=== PATIENT | female | born 1960 | race Caucasian/White ===

== ENCOUNTER 2017-09-04 09:22 | Emergency (ER) | payer OTHER ==
[~2017-09-04] VITALS: Ht 157.5 cm; Wt 90.5 kg
[2017-09-04] MEDS ORDERED: ZOLOFT50 MG (10:27)
[2017-09-04] MEDS ORDERED: PRAVASTATIN SOD10 MG (10:27)
[2017-09-04] MEDS ORDERED: METFORMIN HCL500 MG PO (10:27)
[2017-09-04] MEDS ORDERED: LISINOPRIL2.5 MG PO (10:27)
[2017-09-04] MEDS ORDERED: GLIPIZIDE5 MG PO (10:27)
== END 2017-09-04 09:44 | disposition home or self-care (01) ==
LOC: FSED 09:22 → ER 09:44
DX: S50.311A Abrasion of right elbow, initial encounter (principal); S50.811A Abrasion of right forearm, initial encounter; W17.89XA Other fall from one level to another, initial encounter; Y92.481 Parking lot as the place of occurrence of the external cause
CPT/HCPCS: 99283

== ENCOUNTER 2018-03-09 15:31 | Emergency (ER) | payer OTHER ==
[~2018-03-09] VITALS: Ht 157.5 cm; Wt 90.3 kg
[~2018-03-09 15:31] MED LIST: GLIPIZIDE5 MG PO; LISINOPRIL2.5 MG PO; METFORMIN HCL500 MG PO; PRAVASTATIN SOD10 MG; ZOLOFT50 MG
[2018-03-09] MEDS ORDERED: ONDANSETRON HCL INJ 2MG/ML 2ML 2 MG/ML VIAL IV STA (15:47)
[2018-03-09] MEDS ORDERED: SODIUM CHLORIDE 0.9% 1000ML 1,000 ML IV STA (15:47)
[2018-03-09] MEDS ORDERED: MORPHINE SULFATE INJ 4 MG/ML INJ 1ML IV STA (15:47)
[2018-03-09] MEDS ORDERED: ALPRAZOLAM0.25 MG PO (15:49)
[2018-03-09] MEDS ORDERED: ASPIRIN81 MG (15:49)
[2018-03-09 16:18] LABS: BASOPHILS # (AUTO) 0.1 (0.0-0.1); EOSINOPHILS # (AUTO) 0.2 (0.0-0.4); EOSINOPHILS % 1.7 % (0.0-6.0); HEMATOCRIT 36.9 % (34.2-44.1); HEMOGLOBIN 12.2 g/dL (12.0-16.0); LYMPHOCYTES # (AUTO) 2.8 (1.0-3.2); LYMPHOCYTES % 28.1 % (18.0-39.1); MEAN CORPUSCULAR HGB CONC 33.1 g/dL (31-35); MEAN CORPUSCULAR VOLUME 87.9 fL (81-99); MONOCYTES # (AUTO) 0.8 (0.2-0.8); MONOCYTES % 8.2 % (4.4-11.3); NEUTROPHILS # (AUTO) 6.1 (2.1-6.9); NEUTROPHILS % 60.6 % (38.7-80.0); PLATELET COUNT 278 x10e3/uL (140-360); RED CELL DISTRIBUTION WIDTH 13.4 % (11.7-14.4)
--- NOTE | 2018-03-09 16:25 | Diagnostic Imaging Report ---
Examination: Single AP view of the chest. COMPARISON: None. INDICATION: Abdominal pain DISCUSSION: Lines/tubes: None. Lungs: The lungs are well inflated and clear. No pneumonia or pulmonary edema. Pleura: No pleural effusion or pneumothorax. Heart and mediastinum: Prominent heart size. Bones and soft tissues: No acute bony abnormalities. IMPRESSION: 1. No acute cardiopulmonary abnormalities. Signed by: Dr. Douglas Thorpe M.D. on 03/09/2018 4:21 PM
[2018-03-09 16:31] LABS: ALANINE AMINOTRANSFERASE 17 IU/L (0-55); ALBUMIN 3.6 g/dL (3.5-5.0); ALBUMIN/GLOBULIN RATIO 0.9 (0.8-2.0); ALKALINE PHOSPHATASE 90 IU/L (40-150); AMYLASE 43 U/L (25-125); ANION GAP 15.9 mmol/L (8-16); BLOOD UREA NITROGEN 16 mg/dL (7-26); BUN/CREATININE RATIO 19 (6-25); CALCIUM 9.9 mg/dL (8.4-10.2); CARBON DIOXIDE 23 mmol/L (22-29); CHLORIDE 101 mmol/L (98-107); CREATININE, SERUM 0.84 mg/dL (0.57-1.11); EST GLOMERULAR FILTRATION RATE > 60 ML/MIN (60-); GLUCOSE 198 mg/dL (74-118); LIPASE 35 U/L (8-78); POTASSIUM 3.9 mmol/L (3.5-5.1); SODIUM 136 mmol/L (136-145)
--- NOTE | 2018-03-09 17:46 | Diagnostic Imaging Report ---
EXAM: RUQ ULTRASOUND Date: 03/09/2018 3:47 PM Indication: Pain Comparison: None Technique: Sonographic evaluation of the right upper quadrant. Color doppler was utilized to supplement evaluation. FINDINGS: LIVER: No focal lesion is identified. The liver measures 15.0 cm in the right midclavicular line. Echotexture is coarsened. BILIARY: The gallbladder is moderately contracted limiting evaluation. No definite shadowing stones. The common bile duct measures 0.3 cm. PANCREAS: Limited. RIGHT KIDNEY: Measures 9.5 cm in length. No hydronephrosis or solid mass lesion identified. PERITONEUM: No free fluid. VASCULATURE: Aorta: Limited by overlying bowel gas. Interior vena cava: Visualized portions appear unremarkable. Portal Vein: Nondilated with hepatopedal flow. IMPRESSION: Overlying bowel gas and recent postprandial state limits evaluation. Gallbladder contracted, limiting evaluation. No definite shadowing gallstones. Increased hepatic echotexture can be seen in the setting of steatosis. Signed by: Dr. Roger Mann MD on 03/09/2018 5:43 PM
[2018-03-09 19:20] LABS: BACTERIA,URINE FEW /HPF; BILIRUBIN,URINE NEGATIVE (NEGATIVE); CLARITY,URINE CLEAR (CLEAR); COLOR,URINE YELLOW (YELLOW); EPITHELIAL CELLS,URINE FEW /LPF; KETONES,URINE NEGATIVE (NEGATIVE); LEUKOCYTE ESTERASE ,URINE NEGATIVE (NEGATIVE); NITRITE,URINE NEGATIVE (NEGATIVE); PROTEIN,URINE DIPSTICK NEGATIVE (NEGATIVE); RBC,URINE 0-5 /HPF (0-5); URINE UROBILINOGEN 0.2 mg/dL (0.2 - 1); WBC,URINE (MAN) 0-5 /HPF (0-5)
[2018-03-09 19:21] LABS: MUCUS,URINE FEW (RARE)
[2018-03-09] MEDS ORDERED: KETOROLAC TROMETHAMINE 30 MG/ML VIAL IV ONE (19:45)
[2018-03-09 20:23] VITALS: BP 142/71
[2018-03-09] MEDS ORDERED: CYCLOBENZAPRINE5 MG PO (20:23)
[2018-03-09] MEDS ORDERED: TYLENOL # 31 EA PO (20:23)
== END 2018-03-09 20:42 | disposition home or self-care (01) ==
LOC: ER 15:31
DX: R10.11 Right upper quadrant pain (principal); S39.011A Strain of muscle, fascia and tendon of abdomen, initial encounter; I10 Essential (primary) hypertension; E11.9 Type 2 diabetes mellitus without complications; E78.5 Hyperlipidemia, unspecified
CPT/HCPCS: 36415; 71045; 76705; 80053; 81001; 82150; 83690; 85025; 96374; 99284; J1885; J7030; J2270; J2405

== ENCOUNTER 2018-11-19 12:06 | Emergency (ER) | payer OTHER ==
[~2018-11-19] VITALS: Ht 157.5 cm; Wt 90.3 kg
[~2018-11-19 12:06] MED LIST changes: +ALPRAZOLAM0.25 MG PO; +ASPIRIN81 MG; +CYCLOBENZAPRINE5 MG PO; +TYLENOL # 31 EA PO
--- OUTSIDE RECORDS SUMMARY | 2018-11-19 12:09 | XMS REPORT ---
Author Author [facility] Address Unknown Phone Unavailable Care Team Providers Care Retail Store Manager Name Role Phone Jolly MARES Unavailable Unavailable Problems This patient has no known problems. Allergies, Adverse Reactions, Alerts This patient has no known allergies or adverse reactions. Medications This patient has no known medications. Results Test Description Test Time Test Comments Text Results Atomic Results Result Comments CT, MAXILLOFACIAL AREA, WO CONTRAST 2018-06-13 14:40:00 Reason for exam:->traumaWhat is the patient's sedation requirement?->No SedationIs the patient ?->No FINAL REPORT Clinical History: trauma Technique: Contiguous axial, sagittal, and coronal images through the maxillofacial sinuses without contrast. This exam was performed according to the departmental dose optimization program which includes automated exposure control, adjustment of the mA and/or kV according to the patient size, and/or use of an iterative reconstruction technique. Comparisons: None Findings: The study is motion degraded. Allowing for this, no obvious displaced facial fracture is identified. There is no retro-orbital hemorrhage. The paranasal sinuses appear well-aerated. There is generally poor dentition. The retro-orbital soft tissues and visualized brain parenchyma do not demonstrate acute abnormality. Impression: Motion degraded exam without obvious displaced facial fracture. No retro-orbital hemorrhage. Signed: Chaka Leiva MDReport Verified Date/Time: 06/13/2018 14:40:17 Reading Location: [facility] B1 C013V Neuro Reading Room , BRAIN, WITHOUT CONTRAST 2018-06-13 14:31:00 Reason for exam:->headacheIs the patient ?->NoWhat is the patient's sedation requirement?->No Sedation FINAL REPORT CT Head without contrast CLINICAL HISTORY: headachefall TECHNIQUE: Contiguous axial images through the head without contrast. This exam was performed according to the departmental dose optimization program which includes automated exposure control, adjustment of the mA and/or kV according to the patient size, and/or use of an iterative reconstruction technique. COMPARISON: None FINDINGS: There is no evidence of skull fracture or intracranial hemorrhage. There is generalized parenchymal volume loss without hydrocephalus, midline shift, or apparent mass effect. There are atherosclerotic calcifications of the intracranial circulation. There is mild periventricular and subcortical white matter hypodensity which is nonspecific but compatible with chronic microvascular ischemic change. There are no extra-axial fluid collections. The paranasal sinuses are well-aerated. IMPRESSION: No evidence of skull fracture or intracranial hemorrhage. Signed: Chaka Leiva MDReport Verified Date/Time: 06/13/2018 14:31:34 Reading Location: [facility] C013V Neuro Reading Room GALLBLADDER 2018-03-09 17:41:00 [place] [id number] Patient Name: IMELDA OVALLE MR #: [id number] : 1960 Age/Sex: 57/F Req #: [id number] Adm Physician: Ordered by: SERGEY POLANCO [employer] Report #: [id number] Location: ER Room/Bed: Procedure: [id number] US/US GALLBLADDER Exam Date: 03/09/18 Exam Time: 165 REPORT STATUS: Signed EXAM: RUQ ULTRASOUND Date: 03/09/2018 3:47 PM Ind ication: Pain Comparison: None Technique: Sonographic evaluation of the right upper quadrant. Color doppler was utilized to supplement evaluation. FINDINGS: LIVER: No focal lesion is identified. The liver measures 15.0 cm in the right midclavicular line. Echotexture is coarsened. BILIARY: The gallbladder is moderately contracted limiting evaluation. No definite shadowing stones. The common bile duct measures 0.3 cm. PANCREAS: Limited. RIGHT KIDNEY: Measures 9.5 cm in length. No hydronephrosis or solid mass lesion identified. PERITONEUM: No free fluid. VASCULATURE: Aorta: Limited by overlying bowel gas. Interior vena cava: Visualized portions appear unremarkable. Portal Vein: Nondilated with hepatopedal flow. IMPRESSION: Overlying bowel gas and recent postprandial state limits evaluation. Gallbladder contracted, limiting evaluation. No definite shadowing gallstones. Increased hepatic echotexture can be seen in the setting of steatosis. Signed by: Dr. Roger Mann MD on 03/09/2018 5:43 PM Dictated By: ROGER MANN MD 42 Transcribed By: ADELA on 03/09/181742 COPY TO: SERGEY POLANCO NP CHEST SINGLE (PORTABLE) 2018-03-09 16:21:00 [place] [id number] Patient Name: IMELDA OVALLE MR #: [id number] : 1960 Age/Sex: 57/F Req #: [id number] Adm Physician: Ordered by: SERGEY POLANCO NP Report #: [id number] Location: ER Room/Bed: Procedure: [id number] DX/CHEST SINGLE (PORTABLE) Exam Date: 03/09/18 Exam Time: 1600 REPORT STATUS: Signed Examination: Single AP view of the chest. CO MPARISON: None. INDICATION: Abdominal pain DISCUSSION: Lines/tubes: None. Lungs: The lungs are well inflated and clear. No pneumonia or pulmonary edema. Pleura: No pleural effusion or pneumothorax. Heart and mediastinum: Prominent heart size. Bones and soft tissues: No acute bony abnormalities. IMPRESSION: 1. No acute cardiopulmonary abnormalities. Signed by: Dr. Chaka Law M.D. on 03/09/2018 4:21 PM Dictated By: CHAKA LAW MD [id number] Transcribed By: ADELA on 03/09/18 1621 COPY TO: SERGEY POLANCO NP
[2018-11-19] MEDS ORDERED: ULTRAM50 MG PO (12:22)
--- NOTE | 2018-11-19 12:23 | NUR ---
SUZETTE WRAP REMOVED PER SIXTO Arnold PATIENTS LEG EVALUATED ALSO BY DR. PINTO. IT WAS REWRAPPED WITH SUZETTE BANDAGE
== END 2018-11-19 12:40 | disposition home or self-care (01) ==
LOC: ER 12:06
DX: M25.572 Pain in left ankle and joints of left foot (principal)
CPT/HCPCS: 99282

== ENCOUNTER 2024-11-07 15:53 | Inpatient (IN) | payer MEDICAID, OTHER ==
[~2024-11-07] VITALS: Ht 157.5 cm; Wt 90.7 kg
[~2024-11-07 15:53] MED LIST changes: +ULTRAM50 MG PO
[2024-11-07 16:10] VITALS: TEMP 98.4
[2024-11-07 16:44] LABS: BASOPHILS % 1.2 % (0.0-1.0); EOSINOPHILS % 4.1 % (0.0-6.0); LYMPHOCYTES % 14.9 % (18.0-39.1); MONOCYTES % 7.5 % (4.4-11.3); NEUTROPHILS % 71.9 % (38.7-80.0); RED CELL DISTRIBUTION WIDTH 14.6 % (11.7-14.4)
[2024-11-07 16:48] LABS: INR 1.07
[2024-11-07 16:58] LABS: EST GLOMERULAR FILTRATION RATE 83 ML/MIN (>=60)
[2024-11-07] MEDS ORDERED: ONDANSETRON HCL INJ 2MG/ML 2ML 2 MG/ML VIAL IV PRN (18:00)
[2024-11-07] MEDS: ONDANSETRON HCL INJ 2MG/ML 2ML 2 MG/ML VIAL IV STA (18:28)
[2024-11-07] MEDS: SODIUM CHLORIDE 0.9% 1000ML 1,000 ML IV STA (18:29)
[2024-11-07] MEDS: Vancomycin IV 1 GM in SODIUM CHLORIDE 0.9% 250ML 250 ML IV SCH (19:09)
[2024-11-07 19:45] VITALS: PULSE 90; RESP 16
[2024-11-07] MEDS: SODIUM CHLORIDE 0.9% 1000ML 1,000 ML IV SCH (20:53)
[2024-11-07 21:00] VITALS: BP 116/52; PULSE 88; RESP 16; RESP 17; TEMP 97.5; TEMP 98.5; O2SAT 97
[2024-11-07] MEDS ORDERED: METOPROLOL TART50 MG PO (22:46)
[2024-11-07] MEDS ORDERED: ONDANSETRON ODT4 MG PO (22:46)
[2024-11-08] VITALS (8 sets, daily range): BP systolic 109–141; BP diastolic 48–85; PULSE 75–91; RESP 15–20; TEMP 97.2–98.5; O2SAT 95–100
[2024-11-08 03:19] LABS: LEUKOCYTE ESTERASE ,URINE 1+ (NEGATIVE); PROTEIN,URINE DIPSTICK 1+ (NEGATIVE); URINE UROBILINOGEN 0.2 mg/dL (0.2 - 1)
[2024-11-08 03:28] LABS: EPITHELIAL CELLS,URINE MODERATE /LPF; WBC,URINE (MAN) 21-50 /HPF (0-5)
[2024-11-08 05:26] LABS: BASOPHILS % 1.4 % (0.0-1.0); EOSINOPHILS % 5.3 % (0.0-6.0); LYMPHOCYTES % 18.1 % (18.0-39.1); MONOCYTES % 9.8 % (4.4-11.3); NEUTROPHILS % 65.2 % (38.7-80.0); RED CELL DISTRIBUTION WIDTH 14.7 % (11.7-14.4)
[2024-11-08 06:16] LABS: EST GLOMERULAR FILTRATION RATE 97 ML/MIN (>=60)
[2024-11-08] MEDS ORDERED: FENTANYL CITRATE/PF 100MCG/2 ML INJ ONE (13:51)
[2024-11-08] MEDS ORDERED: PROPOFOL IV EMULSION 10 MG/ML 20 ML VIAL ONE (13:52)
[2024-11-08] MEDS ORDERED: DEXAMETHASONE SOD PHOS INJ 4 MG/ML SDV ONE (13:52)
[2024-11-08] MEDS ORDERED: LIDOCAINE HCL 2% LOCAL INJ 5 ML SDV VIAL INJ ONE (13:52)
[2024-11-08] MEDS ORDERED: ONDANSETRON HCL INJ 2MG/ML 2ML 2 MG/ML VIAL ONE (13:52)
[2024-11-08] MEDS ORDERED: SEVOFLURANE INHAL SOLN 250 ML PEN BTL ONE (15:07)
[2024-11-08] MEDS ORDERED: PHENYLEPHRINE HCL 1% 10 MG/ML VIAL ONE (15:10)
[2024-11-08] MEDS: DEXTROSE 50% SYRINGE 50 ML IV PRN (16:26)
[2024-11-08] MEDS: INSULIN LISPRO 100 UNIT/1 ML 3ML VIAL SQ SCH (16:30)
[2024-11-08] MEDS: DEXTROSE 50% SYRINGE 50 ML IV ONE (16:46)
[2024-11-08] MEDS: Morphine 4mg INJECTION 4 MG/ML INJ IV PRN (20:29)
[2024-11-09] VITALS (9 sets, daily range): BP systolic 100–124; BP diastolic 53–60; PULSE 75–100; RESP 18–20; TEMP 97.3–98.8; O2SAT 96–100
[2024-11-09] MEDS: CLONAZEPAM 1 MG TAB PO ONE ×2 (03:10→20:13)
[2024-11-09] MEDS: ONDANSETRON HCL INJ 2MG/ML 2ML 2 MG/ML VIAL IV PRN (04:55)
[2024-11-09 05:54] LABS: BASOPHILS % 1.2 % (0.0-1.0); EOSINOPHILS % 6.0 % (0.0-6.0); LYMPHOCYTES % 17.7 % (18.0-39.1); MONOCYTES % 8.4 % (4.4-11.3); NEUTROPHILS % 66.3 % (38.7-80.0); RED CELL DISTRIBUTION WIDTH 14.9 % (11.7-14.4)
[2024-11-09 06:16] LABS: EST GLOMERULAR FILTRATION RATE 100.0 ML/MIN (>=60)
[2024-11-09] MEDS: LISINOPRIL 2.5 MG TAB PO SCH (09:00)
[2024-11-09] MEDS: METOPROLOL TARTRATE 50 MG TAB PO SCH (09:00)
[2024-11-09] MEDS: POTASSIUM CHLORIDE 20 MEQ TAB CR PO ONE (11:54)
[2024-11-09] MEDS: ASPIRIN 81 MG ENTERIC COATED PO SCH (11:55)
[2024-11-10] VITALS (9 sets, daily range): BP systolic 99–138; BP diastolic 61–71; PULSE 68–92; RESP 18–20; TEMP 97.7–98.6; O2SAT 96–99
[2024-11-10 05:19] LABS: BASOPHILS % 1.9 % (0.0-1.0); EOSINOPHILS % 7.0 % (0.0-6.0); LYMPHOCYTES % 24.4 % (18.0-39.1); MONOCYTES % 7.8 % (4.4-11.3); NEUTROPHILS % 58.6 % (38.7-80.0); RED CELL DISTRIBUTION WIDTH 15.2 % (11.7-14.4)
[2024-11-10 06:01] LABS: EST GLOMERULAR FILTRATION RATE 99.0 ML/MIN (>=60)
[2024-11-11] VITALS (9 sets, daily range): BP systolic 103–116; BP diastolic 58–68; PULSE 75–82; RESP 15–20; TEMP 97.6–98.6; O2SAT 95–100
[2024-11-11 06:28] LABS: BASOPHILS % 1.8 % (0.0-1.0); EOSINOPHILS % 7.2 % (0.0-6.0); LYMPHOCYTES % 26.4 % (18.0-39.1); MONOCYTES % 12.2 % (4.4-11.3); NEUTROPHILS % 52.1 % (38.7-80.0); RED CELL DISTRIBUTION WIDTH 15.8 % (11.7-14.4)
[2024-11-11 07:23] LABS: EST GLOMERULAR FILTRATION RATE 98.0 ML/MIN (>=60)
[2024-11-11] MEDS ORDERED: ACETAMINOPHEN/CODEINE 300MG - 30MG TAB PO PRN (10:00)
[2024-11-12] VITALS (8 sets, daily range): BP systolic 118–145; BP diastolic 61–71; PULSE 72–92; RESP 18–21; TEMP 97.6–98.8; O2SAT 78–98
[2024-11-12 12:35] LABS: BASOPHILS % 1.5 % (0.0-1.0); EOSINOPHILS % 4.9 % (0.0-6.0); LYMPHOCYTES % 15.9 % (18.0-39.1); MONOCYTES % 8.1 % (4.4-11.3); NEUTROPHILS % 69.3 % (38.7-80.0); RED CELL DISTRIBUTION WIDTH 15.6 % (11.7-14.4)
[2024-11-12 12:49] LABS: EST GLOMERULAR FILTRATION RATE 89.0 ML/MIN (>=60)
[2024-11-13] VITALS (9 sets, daily range): BP systolic 127–148; BP diastolic 63–68; PULSE 75–82; RESP 17–18; TEMP 97.5–98.2; O2SAT 96–100
[2024-11-13 06:21] LABS: BASOPHILS % 1.5 % (0.0-1.0); EOSINOPHILS % 6.5 % (0.0-6.0); LYMPHOCYTES % 22.2 % (18.0-39.1); MONOCYTES % 10.1 % (4.4-11.3); NEUTROPHILS % 59.4 % (38.7-80.0); RED CELL DISTRIBUTION WIDTH 16.0 % (11.7-14.4)
[2024-11-13] MEDS: SODIUM CHLORIDE 0.9% 250ML 250 ML ONE (06:31)
[2024-11-13] MEDS: POTASSIUM CHLORIDE 20MEQ/100ML 100 ML IV SCH (06:31)
[2024-11-13 07:16] LABS: EST GLOMERULAR FILTRATION RATE 85 ML/MIN (>=60)
[2024-11-13] MEDS: LISINOPRIL 10 MG TAB PO SCH (09:09)
[2024-11-13] MEDS: METOPROLOL TARTRATE 50 MG TAB PO ONE (11:18)
[2024-11-13] MEDS: SODIUM CHLORIDE 0.9% IV SCH (12:12)
[2024-11-13] MEDS: DAPTOMYCIN IV SCH (12:12)
[2024-11-13] MEDS ORDERED: METOPROLOL TARTRATE INJ 1 MG/ML VIAL ONE (12:37)
[2024-11-13] MEDS ORDERED: METOPROLOL TARTRATE 25 MG TAB ONE (12:37)
[2024-11-13] MEDS ORDERED: NITROGLYCERIN 0.4 MG SUBL ONE (12:37)
[2024-11-13] MEDS ORDERED: SODIUM CHLORIDE 0.9% 100 ML ONE (12:39)
[2024-11-13] MEDS ORDERED: IOPAMIDOL 370 MG/ML 100 ML INFUS..BTL INJ ONE (12:39)
[2024-11-13] MEDS ORDERED: POTASSIUM CHLORIDE 20 MEQ TAB CR PO SCH (14:00)
[2024-11-13] MEDS: ENOXAPARIN SOD INJ 40 MG/0.4 ML SYR SC SCH (17:22)
[2024-11-13] MEDS: METOPROLOL TARTRATE 50 MG TAB PO SCH (17:23)
[2024-11-14] VITALS (7 sets, daily range): BP systolic 122–146; BP diastolic 65–75; PULSE 75–90; RESP 17–20; TEMP 98.1–99.1; O2SAT 95–100
[2024-11-15] VITALS (10 sets, daily range): BP systolic 131–152; BP diastolic 56–80; PULSE 72–89; RESP 18–21; TEMP 97.7–98.6; O2SAT 95–100
[2024-11-15 05:47] LABS: BASOPHILS % 1.0 % (0.0-1.0); EOSINOPHILS % 3.6 % (0.0-6.0); LYMPHOCYTES % 15.8 % (18.0-39.1); MONOCYTES % 8.6 % (4.4-11.3); NEUTROPHILS % 70.4 % (38.7-80.0); RED CELL DISTRIBUTION WIDTH 16.0 % (11.7-14.4); RETICULOCYTE % 1.1 % (0.8-2.2)
[2024-11-15 06:14] LABS: % IRON SATURATION 7 % (15-50); EST GLOMERULAR FILTRATION RATE 98 ML/MIN (>=60); LACTATE DEHYDROGENASE 136 IU/L (125-220)
[2024-11-15] MEDS: POTASSIUM BICARBONATE/CIT AC 20 MEQ TABLET.EFF PO ONE (08:22)
[2024-11-15] MEDS: METOPROLOL SUCCINATE 50 MG TAB XL PO SCH (08:49)
[2024-11-16] VITALS (9 sets, daily range): BP systolic 130–151; BP diastolic 63–91; PULSE 81–87; RESP 17–22; TEMP 97.3–98.6; O2SAT 95–100
[2024-11-16 07:27] LABS: FOLATE (REF LAB) 7.1 ng/mL (>3.0)
[2024-11-16] MEDS: IRON SUCROSE 300 MG in SODIUM CHLORIDE 0.9% 250ML 250 ML IV SCH (10:26)
[2024-11-16] MEDS: CYANOCOBALAMIN 1,000 MCG TAB PO SCH (10:29)
[2024-11-16] MEDS: MAGNESIUM SULFATE 2GM/50ML 50 ML IV ONE (10:30)
[2024-11-16 10:38] LABS: BASOPHILS % 1.2 % (0.0-1.0); EOSINOPHILS % 4.3 % (0.0-6.0); LYMPHOCYTES % 11.0 % (18.0-39.1); MONOCYTES % 7.6 % (4.4-11.3); NEUTROPHILS % 75.4 % (38.7-80.0); RED CELL DISTRIBUTION WIDTH 16.1 % (11.7-14.4)
[2024-11-16 11:08] LABS: EST GLOMERULAR FILTRATION RATE 97.0 ML/MIN (>=60)
[2024-11-17] VITALS (7 sets, daily range): BP systolic 127–147; BP diastolic 70–95; PULSE 72–88; RESP 16–20; TEMP 97–98.5; O2SAT 96–100
[2024-11-17] MEDS: POTASSIUM BICARBONATE/CIT AC 20 MEQ TABLET.EFF PO ONE ×3 (04:47→05:36)
[2024-11-17 09:08] LABS: BASOPHILS % 1.3 % (0.0-1.0); EOSINOPHILS % 5.1 % (0.0-6.0); LYMPHOCYTES % 18.7 % (18.0-39.1); MONOCYTES % 10.6 % (4.4-11.3); NEUTROPHILS % 63.6 % (38.7-80.0); RED CELL DISTRIBUTION WIDTH 16.3 % (11.7-14.4)
[2024-11-17 09:31] LABS: EST GLOMERULAR FILTRATION RATE 99.0 ML/MIN (>=60)
[2024-11-17] MEDS: MAGNESIUM SULFATE 2GM/50ML 50 ML IV ONE (09:48)
[2024-11-17] MEDS: POTASSIUM CHLORIDE 20MEQ/100ML 100 ML IV SCH (09:55)
[2024-11-17] MEDS: SODIUM CHLORIDE 0.9% 250ML 250 ML ONE (10:31)
[2024-11-17 16:55] LABS: HAPTOGLOBIN 390.0 mg/dL (37-355)
[2024-11-18] VITALS (9 sets, daily range): BP systolic 112–144; BP diastolic 61–87; PULSE 77–84; RESP 18–22; TEMP 97.6–98.6; O2SAT 96–100
[2024-11-18 06:32] LABS: BASOPHILS % 1.1 % (0.0-1.0); EOSINOPHILS % 4.4 % (0.0-6.0); LYMPHOCYTES % 18.3 % (18.0-39.1); MONOCYTES % 8.7 % (4.4-11.3); NEUTROPHILS % 67.2 % (38.7-80.0); RED CELL DISTRIBUTION WIDTH 16.4 % (11.7-14.4)
[2024-11-18 07:03] LABS: EST GLOMERULAR FILTRATION RATE 98.0 ML/MIN (>=60)
[2024-11-19] VITALS (8 sets, daily range): BP systolic 128–163; BP diastolic 56–81; PULSE 80–88; RESP 16–26; TEMP 97.8–99.3; O2SAT 92–98
[2024-11-19] MEDS: DEXAMETHASONE 4 MG TAB PO SCH (17:39)
[2024-11-20] VITALS (8 sets, daily range): BP systolic 105–163; BP diastolic 60–76; PULSE 62–78; RESP 16–20; TEMP 97.5–98.6; O2SAT 93–99
[2024-11-20 05:30] LABS: BASOPHILS % 0.5 % (0.0-1.0); EOSINOPHILS % 0.0 % (0.0-6.0); LYMPHOCYTES % 7.6 % (18.0-39.1); MONOCYTES % 5.3 % (4.4-11.3); NEUTROPHILS % 85.9 % (38.7-80.0); RED CELL DISTRIBUTION WIDTH 16.8 % (11.7-14.4)
[2024-11-20 05:59] LABS: EST GLOMERULAR FILTRATION RATE 97 ML/MIN (>=60)
[2024-11-20] MEDS: SODIUM CHLORIDE 0.9% IV SCH (12:53)
[2024-11-20] MEDS: DAPTOMYCIN IV SCH (12:53)
[2024-11-21] VITALS (12 sets, daily range): BP systolic 126–145; BP diastolic 57–77; PULSE 70–76; RESP 17–20; TEMP 97.2–98.2; O2SAT 95–100
[2024-11-22] VITALS (9 sets, daily range): BP systolic 116–147; BP diastolic 57–79; PULSE 63–82; RESP 16–20; TEMP 97–98.2; O2SAT 95–100
[2024-11-22] MEDS: LORAZEPAM INJ 2 MG/ML VIAL IV PRN (16:29)
[2024-11-23] VITALS (9 sets, daily range): BP systolic 127–148; BP diastolic 62–76; PULSE 78–87; RESP 17–20; TEMP 97.2–98.1; O2SAT 96–98
[2024-11-24] VITALS: BP 146/68; PULSE 81; RESP 18; TEMP 98.6; O2SAT 96
[2024-11-24 07:19] VITALS: BP 132/79; PULSE 77; RESP 16; TEMP 97.7; O2SAT 100
[2024-11-24 07:57] LABS: BASOPHILS % 0.1 % (0.0-1.0); EOSINOPHILS % 0.2 % (0.0-6.0); LYMPHOCYTES % 13.9 % (18.0-39.1); MONOCYTES % 6.8 % (4.4-11.3); NEUTROPHILS % 78.1 % (38.7-80.0); RED CELL DISTRIBUTION WIDTH 16.8 % (11.7-14.4)
[2024-11-24] MEDS: DEXAMETHASONE 4 MG TAB PO SCH (08:36)
[2024-11-24 08:46] LABS: EST GLOMERULAR FILTRATION RATE 97.0 ML/MIN (>=60)
[2024-11-24 09:00] VITALS: BP 132/79; PULSE 77; RESP 16; TEMP 97.7; O2SAT 100
[2024-11-24] MEDS ORDERED: IOTHALAMATE MEGLUMINE 17.20% 250 ML BTL ONE (09:23)
[2024-11-24 11:57] VITALS: BP 128/64; PULSE 78; RESP 16; TEMP 97.8; O2SAT 97
[2024-11-24 16:01] VITALS: BP 120/53; PULSE 80; RESP 20; TEMP 98.1; O2SAT 100
== END 2024-11-24 18:50 | disposition home or self-care (01) | DRG 495 ==
LOC: ER 16:15 → ERHOLD 17:59 → MED/SURG2 20:46
PROVIDERS: ADMIT Internal Medicine; ATTEND Internal Medicine
PROC: 0QPK04Z Removal of Internal Fixation Device from Left Fibula, Open Approach (ICD-10-PCS; principal; 2024-11-08 14:53)
PROC: 05HY33Z Insertion of Infusion Device into Upper Vein, Percutaneous Approach (ICD-10-PCS; 2024-11-12)
PROC: 05HY33Z Insertion of Infusion Device into Upper Vein, Percutaneous Approach (ICD-10-PCS; 2024-11-17)
DX: T84.127A Displacement of internal fixation device of bone of left lower leg, initial encounter (principal); G93.6 Cerebral edema; C64.1 Malignant neoplasm of right kidney, except renal pelvis; N39.0 Urinary tract infection, site not specified; C64.2 Malignant neoplasm of left kidney, except renal pelvis; M86.9 Osteomyelitis, unspecified; C78.00 Secondary malignant neoplasm of unspecified lung; D68.59 Other primary thrombophilia; E11.52 Type 2 diabetes mellitus with diabetic peripheral angiopathy with gangrene; I96 Gangrene, not elsewhere classified; C79.31 Secondary malignant neoplasm of brain; T84.59XA Infection and inflammatory reaction due to other internal joint prosthesis, initial encounter; E78.5 Hyperlipidemia, unspecified; E11.65 Type 2 diabetes mellitus with hyperglycemia; D50.9 Iron deficiency anemia, unspecified; F03.90 Unspecified dementia, unspecified severity, without behavioral disturbance, psychotic disturbance, mood disturbance, and anxiety; E66.9 Obesity, unspecified; R31.29 Other microscopic hematuria; E11.69 Type 2 diabetes mellitus with other specified complication; K52.9 Noninfective gastroenteritis and colitis, unspecified; E87.6 Hypokalemia; N39.41 Urge incontinence; E83.51 Hypocalcemia; R53.81 Other malaise; E87.8 Other disorders of electrolyte and fluid balance, not elsewhere classified; R19.00 Intra-abdominal and pelvic swelling, mass and lump, unspecified site; I25.10 Atherosclerotic heart disease of native coronary artery without angina pectoris; I11.9 Hypertensive heart disease without heart failure; B95.7 Other staphylococcus as the cause of diseases classified elsewhere; F32.A Depression, unspecified; Z74.3 Need for continuous supervision; Z79.82 Long term (current) use of aspirin; Z79.84 Long term (current) use of oral hypoglycemic drugs; Z90.49 Acquired absence of other specified parts of digestive tract; Z68.36 Body mass index [BMI] 36.0-36.9, adult
CPT/HCPCS: 36415; 36568; 70450; 71045; 71260; 74177; 75574; 75580; 76000; 80048; 80053; 80202; 81001; 82550; 82607; 82728; 82746; 82948; 83010; 83540; 83615; 83735; 84100; 84466; 84484; 85025; 85045; 85610; 85730; 86140; 86850; 86900; 87040; 87071; 87075; 87086; 87205; 93005; 93306; 94799; 96372; 97606; 99252; 99284; J1100; J1650; J1756; J2003; J2060; J2270; J2371; J2405; J2470; J2543; J3373; J3475; J3480; J7030; J7050; J7799; Q9967